=== PATIENT | female | born 1940 | race African-American/Black ===

== ENCOUNTER 2021-07-28 14:14 | Outpatient (CLI) | payer MEDICARE | END 2021-07-28 14:15 | disposition home or self-care (01) | LOC: ULT 14:14 | PROVIDERS: ATTEND Internal Medicine Nephrology | DX: Z01.818 Encounter for other preprocedural examination (principal) | CPT/HCPCS: 93970 ==

== ENCOUNTER → 2021-08-13 | Day surgery (SDC) | payer MEDICARE ==
[2021-08-11 09:38] VITALS: BMI 24.0
[~2021-08-13] MED LIST: Acetaminophen 500 MG TAB ONE; Bupivacaine 0.25% 10 ML VIAL ONE; Glycopyrrolate 0.2 MG/ML 5 ML SYRINGE ONE; Heparin 10,000 UNITS/ 10 ML VIAL ONE; Heparin 5,000 UNITS/ML VIAL ONE; Lidocaine 1% PF 5 ML VIAL ONE; Lidocaine 1% w/Epinephrine 1:100K 20 ML VIAL ONE; Lidocaine 2% PF 5 ML VIAL ONE; Ondansetron PF 4 MG/2 ML Vial ONE; PROPOFOL 200 MG/20 ML VIAL ONE; Protamine Sulfate 50 MG/5 ML VIAL ONE; Rocuronium Bromide 10 MG/ML (10ML VIAL) ONE; ceFAZolin (BATCH) 2 GM/100 ML BAG ONE; fentaNYL Citrate/PF 100 MCG/2 ML SYRINGE ONE; hydrALAZINE 20 MG/ML VIAL ONE
[2021-08-13 07:10] LABS: #Eosinphils 0.2 thou/uL (0.0-0.7); #Lymphocytes 1.5 thou/uL (1.20-3.40); #Monocytes 0.5 thou/uL (0.11-0.59); #Neutrophils 2.1 thou/uL (1.40-6.50); %Basophils 0.7 % (0.0-1.0); %Eosinophils 4.2 % (0.0-10.0); %Lymphocytes 34.9 % (21.0-51.0); %Monocytes 11.5 % (0.0-10.0); %Neutrophils 48.8 % (42.0-75.0); Mean Corpuscular HGB CONC 33.2 g/dL (32.0-36.0); Mean Corpuscular Hemoglobin 31.8 pg (27.0-31.0); Mean Corpuscular Volume 95.9 fL (78.0-98.0); Mean Platelet Volume 7.9 fL (7.4-10.4); Platelet Count 167 thou/uL (130-400); RBC Distribution Width 12.6 % (11.5-14.5); Red Blood Cell (RBC) Count 3.13 mill/uL (4.20-5.40); White Blood Cell (WBC) Count 4.3 thou/uL (4.8-10.8)
[2021-08-13 07:28] LABS: Anion Gap 16 mmol/L (10-20); BUN (Urea Nitrogen) 55 mg/dL (9.8-20.1); Calc. Creatinine Clearance 7 mL/min (70-130); Calcium 10.6 mg/dL (7.8-10.44); Carbon Dioxide 17 mmol/L (23-31); Chloride 113 mmol/L (98-107); Glucose 100 mg/dL (83-110); Potassium 4.2 mmol/L (3.5-5.1); Sodium 142 mmol/L (136-145)
[2021-08-13 07:33] LABS: SARS-CoV-2 NAA Rapid Test Not Detected (NotDetected)
== END | disposition home or self-care (01) ==
LOC: SDC 05:39
PROVIDERS: ATTEND Specialist
PROC: 0WHG43Z Insertion of Infusion Device into Peritoneal Cavity, Percutaneous Endoscopic Approach (ICD-10-PCS; principal; 2021-08-13)
PROC: 031C0ZF Bypass Left Radial Artery to Lower Arm Vein, Open Approach (ICD-10-PCS; 2021-08-13)
DX: I13.11 Hypertensive heart and chronic kidney disease without heart failure, with stage 5 chronic kidney disease, or end stage renal disease (principal); N18.6 End stage renal disease; K66.0 Peritoneal adhesions (postprocedural) (postinfection); I21.3 ST elevation (STEMI) myocardial infarction of unspecified site; Z79.899 Other long term (current) drug therapy; Z88.8 Allergy status to other drugs, medicaments and biological substances; Z91.041 Radiographic dye allergy status; Z20.822 Contact with and (suspected) exposure to COVID-19
CPT/HCPCS: 36821; 49324; 80048; 85025; 93005; C1776; U0002; 36415; 93010; J0360; J0690; J1644; J2001; J2405; J2704; J2720; S0020

== ENCOUNTER 2022-06-14 14:08 | Inpatient (IN) | payer MEDICARE ==
[2022-06-14 16:30] LABS: #Eosinphils 0.1 thou/uL (0.0-0.7); #Lymphocytes 1.5 thou/uL (1.20-3.40); #Monocytes 0.9 thou/uL (0.11-0.59); #Neutrophils 5.1 thou/uL (1.40-6.50); %Basophils 0.2 % (0.0-1.0); %Eosinophils 1.4 % (0.0-10.0); %Lymphocytes 19.2 % (21.0-51.0); %Monocytes 12.4 % (0.0-10.0); %Neutrophils 66.9 % (42.0-75.0); Hemoglobin 8.4 g/dL (12.0-16.0); Mean Corpuscular HGB CONC 33.9 g/dL (32.0-36.0); Mean Platelet Volume 7.2 fL (7.4-10.4); Platelet Count 219 10x3/uL (130-400); RBC Distribution Width 14.8 % (11.5-14.5); Red Blood Cell (RBC) Count 2.39 mill/uL (4.20-5.40); White Blood Cell (WBC) Count 7.6 10x3/uL (4.8-10.8)
[2022-06-14 16:50] LABS: ALT (SGPT) 11 U/L (8-55); AST (SGOT) 17 U/L (5-34); Albumin 2.7 g/dL (3.4-4.8); Alkaline Phosphatase 79 U/L (40-110); Anion Gap 21 mmol/L (10-20); BUN (Urea Nitrogen) 54 mg/dL (9.8-20.1); Bilirubin, Total 0.5 mg/dL (0.2-1.2); Calc. Creatinine Clearance 0 mL/min (70-130); Calcium 8.7 mg/dL (7.8-10.44); Carbon Dioxide 22 mmol/L (23-31); Chloride 100 mmol/L (98-107); Estimated GFR 2; Globulin 3.4 g/dL (2.4-3.5); Glucose 97 mg/dL (83-110); Lipase 31 U/L (8-78); Potassium 4.9 mmol/L (3.5-5.1); Protein, Total 6.1 g/dL (5.8-8.1); Sodium 138 mmol/L (136-145)
[2022-06-14] MEDS ORDERED: Senokot S 8.6-50 MG TAB PO PRN (18:03)
[2022-06-14] MEDS ORDERED: Atorvastatin Calcium 10 MG TAB PO SCH (21:00)
[2022-06-14] MEDS ORDERED: traMADol HCl 50 MG TAB PO PRN (21:00)
[2022-06-14] MEDS ORDERED: hydrALAZINE 25 MG TAB ONE (21:53)
[2022-06-14] MEDS: hydrALAZINE 25 MG TAB PO SCH (22:04)
[2022-06-14] MEDS: Cinacalcet HCl 30 MG TAB PO SCH (22:57)
[2022-06-14] MEDS: Heparin 5,000 UNITS/ML VIAL SC SCH (23:00)
[2022-06-14] MEDS: Bupropion 150 MG SR TAB PO SCH (23:00)
[2022-06-15 06:41] LABS: #Eosinphils 0.1 thou/uL (0.0-0.7); #Lymphocytes 1.2 thou/uL (1.20-3.40); #Monocytes 0.7 thou/uL (0.11-0.59); #Neutrophils 4.6 thou/uL (1.40-6.50); %Basophils 0.2 % (0.0-1.0); %Eosinophils 1.1 % (0.0-10.0); %Lymphocytes 17.5 % (21.0-51.0); %Monocytes 10.6 % (0.0-10.0); %Neutrophils 70.6 % (42.0-75.0); Hemoglobin 8.1 g/dL (12.0-16.0); Mean Corpuscular HGB CONC 31.7 g/dL (32.0-36.0); Mean Corpuscular Hemoglobin 33.7 pg (27.0-31.0); Mean Platelet Volume 8.1 fL (7.4-10.4); Platelet Count 153 10x3/uL (130-400); RBC Distribution Width 14.3 % (11.5-14.5); Red Blood Cell (RBC) Count 2.42 mill/uL (4.20-5.40); White Blood Cell (WBC) Count 6.6 10x3/uL (4.8-10.8)
[2022-06-15 06:54] LABS: ALT (SGPT) 10 U/L (8-55); AST (SGOT) 30 U/L (5-34); Albumin 2.5 g/dL (3.4-4.8); Alkaline Phosphatase 70 U/L (40-110); Anion Gap 18 mmol/L (10-20); BUN (Urea Nitrogen) 57 mg/dL (9.8-20.1); Bilirubin, Total 0.6 mg/dL (0.2-1.2); Calc. Creatinine Clearance 3 mL/min (70-130); Calcium 8.2 mg/dL (7.8-10.44); Carbon Dioxide 22 mmol/L (23-31); Chloride 104 mmol/L (98-107); Estimated GFR 2; Globulin 3.1 g/dL (2.4-3.5); Glucose 73 mg/dL (83-110); Magnesium 1.8 mg/dL (1.6-2.6); Phosphorus 6.2 mg/dL (2.3-4.7); Protein, Total 5.6 g/dL (5.8-8.1); Sodium 138 mmol/L (136-145)
[2022-06-15] MEDS ORDERED: Ferrous Sulfate 325 MG TAB PO SCH (08:00)
[2022-06-15] MEDS ORDERED: Heparin 10,000 UNITS/ 10 ML VIAL ONE (08:52)
[2022-06-15] MEDS ORDERED: Megestrol Acetate 40 MG TAB PO SCH (09:00)
[2022-06-15] MEDS ORDERED: Famotidine 20 MG TAB PO SCH (09:00)
[2022-06-15] MEDS: hydrALAZINE 25 MG TAB PO SCH ×4 (09:13→20:34)
[2022-06-15] MEDS: Bupropion 150 MG SR TAB PO SCH ×2 (09:13→20:34)
[2022-06-15] MEDS: Amlodipine 10 MG TAB PO SCH (09:14)
[2022-06-15] MEDS: Calcitriol 0.25 MCG CAP PO SCH (09:14)
[2022-06-15] MEDS ORDERED: Epoetin (ESRD) 20,000 UNITS/ML SC SCH (09:15)
[2022-06-15] MEDS: Heparin 5,000 UNITS/ML VIAL SC SCH ×3 (09:15→20:34)
[2022-06-15] MEDS ORDERED: MD-Gastroview 120 ML BOT ONE (09:17)
[2022-06-15 11:22] LABS: HBSAg Index 0.24 S/CO (0-0.99); Hep B Core Total Ab Non-Reactive (NonReactive); Hep B Core Total Index 0.11 S/CO (0-0.79); Hep B Surf Ag Non-Reactive S/CO (NonReactive); Hep C IgG Ab Non-Reactive (NonReactive)
[2022-06-15 11:34] LABS: HBSAB Concentration 662.74 mIU/mL; Hep B Surf AB Reactive (NonReactive)
[2022-06-15] MEDS: EPOETIN ALFA-EPBX (ESRD) 10,000 UNIT/ML VIAL SC SCH (15:44)
[2022-06-15] MEDS: predniSONE 50 MG TAB PO SCH (18:45)
[2022-06-15] MEDS: Pantoprazole 40 MG VIAL IVP SCH (20:34)
[2022-06-15] MEDS: Folic Acid/Vit B Comp W-C PO SCH (20:34)
[2022-06-15] MEDS: Cinacalcet HCl 30 MG TAB PO SCH (20:35)
[2022-06-16] MEDS: predniSONE 50 MG TAB PO SCH ×2 (00:10→06:26)
[2022-06-16 03:17] LABS: SARS-CoV-2 NAA Rapid Test Not Detected (NotDetected)
[2022-06-16 06:48] LABS: #Lymphocytes 0.6 thou/uL (1.20-3.40); #Monocytes 0.1 thou/uL (0.11-0.59); #Neutrophils 4.3 thou/uL (1.40-6.50); %Lymphocytes 11.4 % (21.0-51.0); %Monocytes 2.2 % (0.0-10.0); %Neutrophils 86.3 % (42.0-75.0); Hemoglobin 7.2 g/dL (12.0-16.0); Mean Corpuscular HGB CONC 33.3 g/dL (32.0-36.0); Mean Corpuscular Hemoglobin 34.6 pg (27.0-31.0); Mean Platelet Volume 7.3 fL (7.4-10.4); Platelet Count 188 10x3/uL (130-400); Red Blood Cell (RBC) Count 2.09 mill/uL (4.20-5.40)
[2022-06-16] MEDS ORDERED: diphenhydrAMINE 50 MG CAP PO SCH (07:00)
[2022-06-16 07:13] LABS: Anion Gap 18 mmol/L (10-20); BUN (Urea Nitrogen) 27 mg/dL (9.8-20.1); Calc. Creatinine Clearance 5 mL/min (70-130); Calcium 7.9 mg/dL (7.8-10.44); Carbon Dioxide 24 mmol/L (23-31); Chloride 105 mmol/L (98-107); Estimated GFR 4; Glucose 117 mg/dL (83-110); Sodium 143 mmol/L (136-145)
[2022-06-16] MEDS ORDERED: Sterile Water 10 ML VIAL IVP SCH (08:00)
[2022-06-16] MEDS ORDERED: Activase 2 MG VIAL CATH SCH (08:00)
[2022-06-16] MEDS: Amlodipine 10 MG TAB PO SCH (10:04)
[2022-06-16] MEDS: hydrALAZINE 25 MG TAB PO SCH ×4 (10:04→20:02)
[2022-06-16] MEDS: Pantoprazole 40 MG VIAL IVP SCH ×2 (10:05→20:03)
[2022-06-16] MEDS: Heparin 5,000 UNITS/ML VIAL SC SCH ×3 (10:05→20:02)
[2022-06-16] MEDS: Calcitriol 0.25 MCG CAP PO SCH (10:05)
[2022-06-16] MEDS: Bupropion 150 MG SR TAB PO SCH ×2 (10:05→20:01)
[2022-06-16] MEDS ORDERED: Iopamidol 300 61% 100 ML VIAL FS ONE (13:17)
[2022-06-16] MEDS ORDERED: fentaNYL PF 100 MCG/2 ML SYRINGE ONE (15:23)
[2022-06-16] MEDS ORDERED: SUGAMMADEX SODIUM 200 MG/2 ML VIAL ONE (15:32)
[2022-06-16] MEDS ORDERED: Bupivacaine HCl 0.5%/Epinephrine 1:200,000/PF 30 ml Vial ONE (15:33)
[2022-06-16] MEDS ORDERED: Lidocaine 2% PF 5 ML VIAL ONE (15:33)
[2022-06-16] MEDS ORDERED: Heparin 10,000 UNITS/ 10 ML VIAL ONE ×2 (15:33→16:36)
[2022-06-16] MEDS ORDERED: Sodium Chloride 0.9% 100 ML ONE (15:44)
[2022-06-16] MEDS ORDERED: CEFAZOLIN 2 GM VIAL ONE (15:44)
[2022-06-16] MEDS ORDERED: PHENYLEPHRINE-NS 100 MCG/ML 10 ML SYRINGE ONE (15:54)
[2022-06-16] MEDS ORDERED: Rocuronium Bromide 10 MG/ML (10ML VIAL) ONE (15:54)
[2022-06-16] MEDS ORDERED: PROPOFOL 200 MG/20 ML VIAL ONE (15:54)
[2022-06-16] MEDS ORDERED: Ondansetron PF 4 MG/2 ML Vial ONE (15:54)
[2022-06-16] MEDS ORDERED: Dexamethasone 20 MG/5 ML VIAL ONE (15:54)
[2022-06-16] MEDS ORDERED: Promethazine HCl 25 MG/ML VIAL IM PRN (17:16)
[2022-06-16] MEDS ORDERED: Ondansetron HCl/PF 4 MG/2 ML Vial IVP PRN (17:16)
[2022-06-16] MEDS: Folic Acid/Vit B Comp W-C PO SCH (20:02)
[2022-06-16] MEDS: Cinacalcet HCl 30 MG TAB PO SCH (20:03)
[2022-06-17] MEDS ORDERED: Acetaminophen 500 MG TAB PO PRN (03:58)
[2022-06-17] MEDS ORDERED: Famotidine 20 MG TAB PO SCH (04:00)
[2022-06-17] MEDS: HYDROcodone/Acetaminophen 5/325 mg Tablet PO PRN ×2 (04:09→11:04)
[2022-06-17 06:03] LABS: #Lymphocytes 0.6 thou/uL (1.20-3.40); #Monocytes 0.9 thou/uL (0.11-0.59); #Neutrophils 8.9 thou/uL (1.40-6.50); %Eosinophils 0.1 % (0.0-10.0); %Monocytes 8.8 % (0.0-10.0); %Neutrophils 85.1 % (42.0-75.0); Hemoglobin 5.8 g/dL (12.0-16.0); Mean Corpuscular HGB CONC 32.6 g/dL (32.0-36.0); Mean Corpuscular Hemoglobin 33.8 pg (27.0-31.0); Mean Platelet Volume 7.4 fL (7.4-10.4); Platelet Count 193 10x3/uL (130-400); RBC Distribution Width 14.1 % (11.5-14.5); Red Blood Cell (RBC) Count 1.72 mill/uL (4.20-5.40); White Blood Cell (WBC) Count 10.5 10x3/uL (4.8-10.8)
[2022-06-17 06:24] LABS: Anion Gap 18 mmol/L (10-20); BUN (Urea Nitrogen) 42 mg/dL (9.8-20.1); Calc. Creatinine Clearance 4 mL/min (70-130); Calcium 7.4 mg/dL (7.8-10.44); Carbon Dioxide 24 mmol/L (23-31); Chloride 102 mmol/L (98-107); Estimated GFR 3; Glucose 108 mg/dL (83-110); Sodium 140 mmol/L (136-145)
[2022-06-17] MEDS: Amlodipine 5 MG TAB PO SCH ×2 (07:48→20:29)
[2022-06-17] MEDS: hydrALAZINE 25 MG TAB PO SCH ×3 (07:49→20:29)
[2022-06-17] MEDS: Bupropion 150 MG SR TAB PO SCH ×2 (08:06→20:38)
[2022-06-17] MEDS: Pantoprazole 40 MG VIAL IVP SCH ×2 (08:06→20:32)
[2022-06-17] MEDS: Calcitriol 0.25 MCG CAP PO SCH (08:06)
[2022-06-17] MEDS ORDERED: Heparin 10,000 UNITS/ 10 ML VIAL ONE (08:46)
[2022-06-17] MEDS: Folic Acid/Vit B Comp W-C PO SCH (20:29)
[2022-06-17] MEDS: Cinacalcet HCl 30 MG TAB PO SCH (20:30)
[2022-06-18] MEDS: HYDROcodone/Acetaminophen 5/325 mg Tablet PO PRN ×2 (05:50→20:24)
[2022-06-18 06:10] LABS: #Eosinphils 0.1 thou/uL (0.0-0.7); #Lymphocytes 1.3 thou/uL (1.20-3.40); #Monocytes 1.3 thou/uL (0.11-0.59); #Neutrophils 6.8 thou/uL (1.40-6.50); %Basophils 0.1 % (0.0-1.0); %Eosinophils 0.6 % (0.0-10.0); %Lymphocytes 13.5 % (21.0-51.0); %Neutrophils 71.8 % (42.0-75.0); Mean Corpuscular HGB CONC 33.9 g/dL (32.0-36.0); Mean Corpuscular Hemoglobin 33.6 pg (27.0-31.0); Mean Platelet Volume 7.3 fL (7.4-10.4); Platelet Count 178 10x3/uL (130-400); RBC Distribution Width 15.7 % (11.5-14.5); Red Blood Cell (RBC) Count 2.98 mill/uL (4.20-5.40); White Blood Cell (WBC) Count 9.4 10x3/uL (4.8-10.8)
[2022-06-18 06:27] LABS: ALT (SGPT) Less than 7 U/L (8-55); AST (SGOT) 16 U/L (5-34); Albumin 2.5 g/dL (3.4-4.8); Alkaline Phosphatase 59 U/L (40-110); Anion Gap 14 mmol/L (10-20); BUN (Urea Nitrogen) 23 mg/dL (9.8-20.1); Bilirubin, Total 0.5 mg/dL (0.2-1.2); Calc. Creatinine Clearance 7 mL/min (70-130); Calcium 8.2 mg/dL (7.8-10.44); Carbon Dioxide 27 mmol/L (23-31); Chloride 101 mmol/L (98-107); Estimated GFR 7; Glucose 71 mg/dL (83-110); Potassium 3.3 mmol/L (3.5-5.1); Protein, Total 5.5 g/dL (5.8-8.1); Sodium 139 mmol/L (136-145)
[2022-06-18] MEDS: hydrALAZINE 25 MG TAB PO SCH ×3 (08:20→20:18)
[2022-06-18] MEDS: Calcitriol 0.25 MCG CAP PO SCH (08:20)
[2022-06-18] MEDS: Pantoprazole 40 MG VIAL IVP SCH ×2 (08:21→20:17)
[2022-06-18] MEDS: Bupropion 150 MG SR TAB PO SCH ×2 (08:21→20:22)
[2022-06-18] MEDS: Amlodipine 5 MG TAB PO SCH ×2 (08:21→20:18)
[2022-06-18] MEDS: Folic Acid/Vit B Comp W-C PO SCH (20:18)
[2022-06-18] MEDS: Cinacalcet HCl 30 MG TAB PO SCH (20:18)
[2022-06-18] MEDS ORDERED: Morphine 2 MG/ML VIAL SLOW IVP SCH (23:45)
[2022-06-19 05:53] LABS: #Eosinphils 0.2 thou/uL (0.0-0.7); #Lymphocytes 1.3 thou/uL (1.20-3.40); #Monocytes 1.2 thou/uL (0.11-0.59); #Neutrophils 6.8 thou/uL (1.40-6.50); %Basophils 0.1 % (0.0-1.0); %Eosinophils 1.6 % (0.0-10.0); %Lymphocytes 14.1 % (21.0-51.0); %Monocytes 12.7 % (0.0-10.0); %Neutrophils 71.5 % (42.0-75.0); Hemoglobin 10.2 g/dL (12.0-16.0); Mean Corpuscular HGB CONC 33.8 g/dL (32.0-36.0); Mean Corpuscular Hemoglobin 33.7 pg (27.0-31.0); Mean Corpuscular Volume 99.7 fl (78.0-98.0); Mean Platelet Volume 7.4 fL (7.4-10.4); Platelet Count 173 10x3/uL (130-400); RBC Distribution Width 15.1 % (11.5-14.5); Red Blood Cell (RBC) Count 3.02 mill/uL (4.20-5.40); White Blood Cell (WBC) Count 9.5 10x3/uL (4.8-10.8)
[2022-06-19 06:09] LABS: Anion Gap 15 mmol/L (10-20); BUN (Urea Nitrogen) 34 mg/dL (9.8-20.1); Calc. Creatinine Clearance 5 mL/min (70-130); Calcium 7.8 mg/dL (7.8-10.44); Carbon Dioxide 24 mmol/L (23-31); Chloride 103 mmol/L (98-107); Estimated GFR 5; Glucose 68 mg/dL (83-110); Potassium 3.4 mmol/L (3.5-5.1); Sodium 139 mmol/L (136-145)
[2022-06-19] MEDS: Calcitriol 0.25 MCG CAP PO SCH (08:52)
[2022-06-19] MEDS: Amlodipine 5 MG TAB PO SCH ×2 (08:52→20:49)
[2022-06-19] MEDS: hydrALAZINE 25 MG TAB PO SCH ×3 (08:52→20:52)
[2022-06-19] MEDS: Bupropion 150 MG SR TAB PO SCH ×2 (08:53→20:53)
[2022-06-19] MEDS: Pantoprazole 40 MG VIAL IVP SCH ×2 (08:53→20:49)
[2022-06-19] MEDS ORDERED: Heparin 10,000 UNITS/ 10 ML VIAL ONE ×2 (13:30→17:30)
[2022-06-19] MEDS: Cinacalcet HCl 30 MG TAB PO SCH (20:49)
[2022-06-19] MEDS: Folic Acid/Vit B Comp W-C PO SCH (20:49)
[2022-06-19] MEDS: HYDROcodone/Acetaminophen 5/325 mg Tablet PO PRN (22:46)
[2022-06-20] MEDS ORDERED: Ondansetron ODT 4 MG TAB PO PRN (01:49)
[2022-06-20] MEDS: Ondansetron PF 4 MG/2 ML Vial IVP PRN ×2 (01:57→06:41)
[2022-06-20] MEDS ORDERED: Morphine 2 MG/ML VIAL SLOW IVP SCH (02:00)
[2022-06-20 06:27] LABS: Anion Gap 14 mmol/L (10-20); BUN (Urea Nitrogen) 33 mg/dL (9.8-20.1); Calc. Creatinine Clearance 6 mL/min (70-130); Calcium 7.5 mg/dL (7.8-10.44); Carbon Dioxide 24 mmol/L (23-31); Chloride 102 mmol/L (98-107); Estimated GFR 5; Glucose 91 mg/dL (83-110); Potassium 2.9 mmol/L (3.5-5.1); Sodium 137 mmol/L (136-145)
[2022-06-20] MEDS ORDERED: Heparin 10,000 UNITS/ 10 ML VIAL ONE (08:44)
[2022-06-20] MEDS: Amlodipine 5 MG TAB PO SCH ×2 (09:27→21:05)
[2022-06-20] MEDS: Calcitriol 0.25 MCG CAP PO SCH (09:27)
[2022-06-20] MEDS: Pantoprazole 40 MG VIAL IVP SCH ×2 (09:28→21:05)
[2022-06-20] MEDS: Bupropion 150 MG SR TAB PO SCH ×2 (09:28→21:06)
[2022-06-20] MEDS: hydrALAZINE 25 MG TAB PO SCH ×3 (09:31→21:39)
[2022-06-20] MEDS: Calcium Acetate 667 MG CAP PO SCH ×2 (12:53→17:42)
[2022-06-20] MEDS: Folic Acid/Vit B Comp W-C PO SCH (21:05)
[2022-06-20] MEDS: Cinacalcet HCl 30 MG TAB PO SCH (21:05)
[2022-06-21] MEDS: Pantoprazole 40 MG VIAL IVP SCH ×2 (07:59→20:02)
[2022-06-21] MEDS: Calcitriol 0.25 MCG CAP PO SCH (08:02)
[2022-06-21] MEDS: Bupropion 150 MG SR TAB PO SCH ×2 (08:02→21:31)
[2022-06-21] MEDS: Calcium Acetate 667 MG CAP PO SCH ×3 (08:02→16:06)
[2022-06-21] MEDS: Amlodipine 5 MG TAB PO SCH ×2 (08:03→21:31)
[2022-06-21] MEDS: hydrALAZINE 25 MG TAB PO SCH ×3 (08:03→21:31)
[2022-06-21] MEDS ORDERED: cloNIDine 0.3mg/24 Hour PATCH TD SCH (09:00)
[2022-06-21 10:52] LABS: #Eosinphils 0.2 thou/uL (0.0-0.7); #Lymphocytes 1.4 thou/uL (1.20-3.40); #Monocytes 1.6 thou/uL (0.11-0.59); #Neutrophils 8.7 thou/uL (1.40-6.50); %Basophils 0.2 % (0.0-1.0); %Eosinophils 1.5 % (0.0-10.0); %Lymphocytes 11.9 % (21.0-51.0); %Monocytes 13.4 % (0.0-10.0); %Neutrophils 72.9 % (42.0-75.0); Hemoglobin 12.3 g/dL (12.0-16.0); Mean Corpuscular HGB CONC 32.1 g/dL (32.0-36.0); Mean Corpuscular Hemoglobin 32.6 pg (27.0-31.0); Mean Platelet Volume 7.4 fL (7.4-10.4); Platelet Count 305 10x3/uL (130-400); Red Blood Cell (RBC) Count 3.78 mill/uL (4.20-5.40)
[2022-06-21 11:43] LABS: Anion Gap 20 mmol/L (10-20); BUN (Urea Nitrogen) 37 mg/dL (9.8-20.1); Calc. Creatinine Clearance 5 mL/min (70-130); Calcium 8.7 mg/dL (7.8-10.44); Carbon Dioxide 22 mmol/L (23-31); Chloride 99 mmol/L (98-107); Estimated GFR 5; Glucose 102 mg/dL (83-110); Potassium 3.2 mmol/L (3.5-5.1); Sodium 138 mmol/L (136-145)
[2022-06-21] MEDS ORDERED: fentaNYL PF 100 MCG/2 ML SYRINGE ONE ×2 (14:13→16:03)
[2022-06-21] MEDS ORDERED: SUGAMMADEX SODIUM 200 MG/2 ML VIAL ONE (14:14)
[2022-06-21] MEDS ORDERED: Piperacillin/Tazobactam 3.375 GM VIAL ONE (14:23)
[2022-06-21] MEDS ORDERED: Sodium Chloride 0.9% 100 ML ONE (14:23)
[2022-06-21] MEDS ORDERED: ePHEDrine 50 MG/ML VIAL ONE (14:43)
[2022-06-21] MEDS ORDERED: Dexamethasone 20 MG/5 ML VIAL ONE (14:43)
[2022-06-21] MEDS ORDERED: PHENYLEPHRINE-NS 100 MCG/ML 10 ML SYRINGE ONE (14:43)
[2022-06-21] MEDS ORDERED: Ondansetron PF 4 MG/2 ML Vial ONE (14:43)
[2022-06-21] MEDS ORDERED: Lidocaine 1% PF 5 ML VIAL ONE (14:43)
[2022-06-21] MEDS ORDERED: PROPOFOL 200 MG/20 ML VIAL ONE (14:43)
[2022-06-21] MEDS ORDERED: Rocuronium Bromide 10 MG/ML (10ML VIAL) ONE (14:43)
[2022-06-21] MEDS ORDERED: Heparin 10,000 UNITS/ 10 ML VIAL ONE (15:14)
[2022-06-21] MEDS ORDERED: Morphine 4 MG/ML VIAL SLOW IVP PRN (16:05)
[2022-06-21] MEDS ORDERED: Naloxone HCl 0.4 mg/ml Vial IV PRN ×2 (16:06→16:08)
[2022-06-21] MEDS ORDERED: Zolpidem Tartrate 5 MG TAB PO PRN ×2 (16:06→16:08)
[2022-06-21] MEDS ORDERED: Ondansetron HCl/PF 4 MG/2 ML Vial IVP PRN (16:06)
[2022-06-21] MEDS ORDERED: diphenhydrAMINE 50 MG/ML VIAL IM PRN ×2 (16:06→16:08)
[2022-06-21] MEDS ORDERED: Ondansetron PF 4 MG/2 ML Vial IVP PRN ×2 (16:06→16:08)
[2022-06-21] MEDS ORDERED: diphenhydrAMINE 25 MG CAP PO PRN ×2 (16:06→16:08)
[2022-06-21] MEDS ORDERED: Promethazine HCl 25 MG/ML VIAL IM PRN ×3 (16:06→16:08)
[2022-06-21] MEDS ORDERED: diphenhydrAMINE 50 MG/ML VIAL IVP PRN ×2 (16:06→16:08)
[2022-06-21] MEDS ORDERED: FENTANYL 500 MCG/10 ML VIAL 2,000 MCG in Sodium Chloride 0.9% 60 ML IV PRN (16:08)
[2022-06-21] MEDS ORDERED: Communication Order-Pharmacy FS SCH ×2 (16:15)
[2022-06-21] MEDS ORDERED: HYDROmorphone 0.5 MG/0.5 ML SYRINGE ONE ×2 (16:17→16:30)
[2022-06-21] MEDS: Lactated Ringer's 1,000 ML IV SCH (17:32)
[2022-06-21] MEDS: Heparin 5,000 UNITS/ML VIAL SC SCH (20:06)
[2022-06-21] MEDS: Folic Acid/Vit B Comp W-C PO SCH (21:31)
[2022-06-21] MEDS: Cinacalcet HCl 30 MG TAB PO SCH (21:31)
[2022-06-22] MEDS: Lactated Ringer's 1,000 ML IV SCH ×2 (05:13→18:55)
[2022-06-22] MEDS: Heparin 5,000 UNITS/ML VIAL SC SCH ×3 (08:17→21:15)
[2022-06-22] MEDS: Calcium Acetate 667 MG CAP PO SCH ×3 (08:17→17:19)
[2022-06-22] MEDS: Pantoprazole 40 MG VIAL IVP SCH ×2 (08:17→21:09)
[2022-06-22] MEDS: Amlodipine 5 MG TAB PO SCH ×2 (08:17→21:09)
[2022-06-22] MEDS: Bupropion 150 MG SR TAB PO SCH ×2 (08:17→21:09)
[2022-06-22] MEDS: Calcitriol 0.25 MCG CAP PO SCH (08:17)
[2022-06-22] MEDS: hydrALAZINE 25 MG TAB PO SCH ×3 (08:18→21:10)
[2022-06-22] MEDS ORDERED: Heparin 10,000 UNITS/ 10 ML VIAL ONE (09:03)
[2022-06-22 10:10] LABS: ALT (SGPT) Less than 7 U/L (8-55); AST (SGOT) 38 U/L (5-34); Albumin 2.2 g/dL (3.4-4.8); Alkaline Phosphatase 77 U/L (40-110); Anion Gap 20 mmol/L (10-20); BUN (Urea Nitrogen) 44 mg/dL (9.8-20.1); Bilirubin, Total 0.5 mg/dL (0.2-1.2); Calc. Creatinine Clearance 4 mL/min (70-130); Calcium 7.6 mg/dL (7.8-10.44); Carbon Dioxide 14 mmol/L (23-31); Chloride 107 mmol/L (98-107); Estimated GFR 4; Globulin 3.3 g/dL (2.4-3.5); Glucose 81 mg/dL (83-110); Potassium 4.3 mmol/L (3.5-5.1); Protein, Total 5.5 g/dL (5.8-8.1); Sodium 137 mmol/L (136-145)
[2022-06-22 10:59] LABS: Hemoglobin 10.8 g/dL (12.0-16.0); Mean Corpuscular HGB CONC 32.7 g/dL (32.0-36.0); Mean Platelet Volume 7.6 fL (7.4-10.4); Platelet Count 274 10x3/uL (130-400); RBC Distribution Width 14.7 % (11.5-14.5); Red Blood Cell (RBC) Count 3.26 mill/uL (4.20-5.40); White Blood Cell (WBC) Count 11.8 10x3/uL (4.8-10.8)
[2022-06-22 11:16] LABS: Band 37 % (5-11); Lymphocytes 12 % (21-51); MDiff Complete? YES; Monocytes 11 % (0-10); Neutrophil 40 % (42-75); Platelet Morphology Comment Appears Adequate; Polychromasia SLIGHT = 2-3 cells (100X) (0-2/hpf)
[2022-06-22] MEDS: EPOETIN ALFA-EPBX (ESRD) 10,000 UNIT/ML VIAL SC SCH (12:07)
[2022-06-22 13:43] VITALS: BMI 22.5
[2022-06-22] MEDS: Folic Acid/Vit B Comp W-C PO SCH (21:10)
[2022-06-22] MEDS: Cinacalcet HCl 30 MG TAB PO SCH (21:10)
[2022-06-23] MEDS ORDERED: Dextrose 50% Abboject 50 ML SYRINGE SLOW IVP PRN (06:16)
[2022-06-23] MEDS ORDERED: Dextrose 5%-Lactated Ringers 1,000 ML IV SCH (07:45)
[2022-06-23 08:05] LABS: Hemoglobin 9.3 g/dL (12.0-16.0); Mean Corpuscular HGB CONC 31.7 g/dL (32.0-36.0); Mean Corpuscular Hemoglobin 32.8 pg (27.0-31.0); Mean Platelet Volume 8.8 fL (7.4-10.4); Platelet Count 176 10x3/uL (130-400); RBC Distribution Width 14.9 % (11.5-14.5); Red Blood Cell (RBC) Count 2.83 mill/uL (4.20-5.40); White Blood Cell (WBC) Count 11.6 10x3/uL (4.8-10.8)
[2022-06-23] MEDS: Calcitriol 0.25 MCG CAP PO SCH (08:48)
[2022-06-23] MEDS: Bupropion 150 MG SR TAB PO SCH ×2 (08:48→21:04)
[2022-06-23] MEDS: Calcium Acetate 667 MG CAP PO SCH ×3 (08:48→17:00)
[2022-06-23] MEDS: hydrALAZINE 25 MG TAB PO SCH ×3 (08:48→21:05)
[2022-06-23] MEDS: Amlodipine 5 MG TAB PO SCH ×2 (08:48→21:04)
[2022-06-23 08:56] LABS: Band 37 % (5-11); Hypochromia SLIGHT = 6-15 cells (100X) (0-5/hpf); Lymphocytes 11 % (21-51); MDiff Complete? YES; Monocytes 11 % (0-10); Neutrophil 40 % (42-75); Platelet Morphology Comment Appears Adequate; Vacuoles SLIGHT
[2022-06-23] MEDS ORDERED: Vancomycin 1 GM in Premix Bag 1 BAG IVPB SCH (09:30)
[2022-06-23] MEDS ORDERED: Vancomycin Hemodialysis Sliding Scale FS SCH (09:45)
[2022-06-23 09:55] LABS: ALT (SGPT) 284 U/L (8-55); AST (SGOT) 1054 U/L (5-34); Albumin 1.6 g/dL (3.4-4.8); Alkaline Phosphatase 53 U/L (40-110); Anion Gap 30 mmol/L (10-20); BUN (Urea Nitrogen) 33 mg/dL (9.8-20.1); Bilirubin, Total 0.7 mg/dL (0.2-1.2); CK (CPK) 177 U/L (29-168); Calc. Creatinine Clearance 7 mL/min (70-130); Calcium 6.8 mg/dL (7.8-10.44); Carbon Dioxide 10 mmol/L (23-31); Chloride 101 mmol/L (98-107); Estimated GFR 7; Globulin 1.7 g/dL (2.4-3.5); Glucose 178 mg/dL (83-110); Magnesium 1.7 mg/dL (1.6-2.6); Phosphorus 7.5 mg/dL (2.3-4.7); Potassium 4.2 mmol/L (3.5-5.1); Protein, Total 3.3 g/dL (5.8-8.1); Sodium 137 mmol/L (136-145)
[2022-06-23] MEDS: Heparin 5,000 UNITS/ML VIAL SC SCH ×3 (09:57→21:05)
[2022-06-23] MEDS: Pantoprazole 40 MG VIAL IVP SCH ×2 (09:57→21:23)
[2022-06-23] MEDS ORDERED: Vancomycin 1.5 GRAM/300 ML BAG 1.5 GM in Premix Bag 1 BAG IVPB SCH (10:00)
[2022-06-23] MEDS: Dextrose 5%-Lactated Ringers 1,000 ML IV SCH (10:15)
[2022-06-23] MEDS ORDERED: NOREPINEPHRINE 8 MG/250 ML-D5W 250 ML ONE (10:23)
[2022-06-23 11:00] LABS: Base Excess (BEa) -12.1 mEq/L (-2.0 to +3.0); CO2 Tension 25.2 mmHg (35.0-45.0); Calcium, Ionized (arterial) 0.87 mmol/L (1.12-1.30); Carboxyhemoglobin (COHb) 1.6 gm% (0.0-3.0); O2 Tension (PaO2), arterial 81.8 mmHg (> 60.0); pH, Arterial 7.33 (7.35-7.45)
[2022-06-23] MEDS ORDERED: VANCOMYCIN 1.25 GM/250 ML BAG 1.25 GM in Premix Bag 1 BAG IVPB SCH (11:00)
[2022-06-23 11:01] LABS: Actual Bicarbonate (HCO3a) 12.9 mEq/L (22-28)
[2022-06-23 11:02] LABS: Hemoglobin (Hb) 4.8 g/dL (12.0-16.0); Puncture Site Arterial Line
[2022-06-23] MEDS ORDERED: Ventilator Sedation Protocol 1 EACH FS SCH (11:15)
[2022-06-23] MEDS ORDERED: Propofol 1,000 MG/100 ML VIAL IV PRN (11:30)
[2022-06-23] MEDS ORDERED: Fentanyl BOLUS 250 ML IVPB PRN (11:30)
[2022-06-23] MEDS ORDERED: Propofol BOLUS 1,000 MG/100 ML VIAL IV PRN (11:30)
[2022-06-23] MEDS ORDERED: Morphine 2 MG/ML VIAL SLOW IVP PRN (11:30)
[2022-06-23] MEDS ORDERED: Fentanyl CADD 100 ML IV SCH (11:30)
[2022-06-23 11:34] LABS: Hemoglobin 5.2 g/dL (12.0-16.0)
[2022-06-23 12:02] LABS: Troponin I 0.051 ng/mL (< 0.028)
[2022-06-23] MEDS ORDERED: Fentanyl CADD 100 ML ONE (12:07)
[2022-06-23 12:08] LABS: INR-International Normal Ratio 3.7; PTT 53.4 sec (22.9-36.1); Prothrombin Time 38.1 sec (12.0-14.7)
[2022-06-23] MEDS ORDERED: Calcium Chloride 1 GM/10 ML Abboject SYRINGE ONE (12:10)
[2022-06-23] MEDS: Albumin 25% 25 GM/100 ML BOT IVPB SCH ×3 (12:26→23:06)
[2022-06-23 13:02] LABS: Hemoglobin 8.5 g/dL (12.0-16.0); Mean Corpuscular HGB CONC 33.1 g/dL (32.0-36.0); Mean Corpuscular Hemoglobin 31.4 pg (27.0-31.0); Mean Corpuscular Volume 94.8 fl (78.0-98.0); Mean Platelet Volume 8.6 fL (7.4-10.4); Platelet Count 121 10x3/uL (130-400); RBC Distribution Width 15.1 % (11.5-14.5); Red Blood Cell (RBC) Count 2.72 mill/uL (4.20-5.40); White Blood Cell (WBC) Count 6.2 10x3/uL (4.8-10.8)
[2022-06-23] MEDS ORDERED: Sodium Chloride 0.9% 1,000 ML IV SCH (13:15)
[2022-06-23 13:31] LABS: Band 29 % (5-11); Burr Cells SLIGHT = 2-5 cells (100X) (0-1/hpf); Dohle Bodies SLIGHT; Lymphocytes 13 % (21-51); MDiff Complete? YES; Monocytes 5 % (0-10); Neutrophil 48 % (42-75); Nucleated RBC 10 % (0); Platelet Morphology Comment Appears Decreased; Polychromasia SLIGHT = 2-3 cells (100X) (0-2/hpf); Reactive Lymphocytes 5 % (0-10); Toxic Granulation SLIGHT; Vacuoles SLIGHT
[2022-06-23 13:32] LABS: Fibrinogen 378 mg/dL (253-463)
[2022-06-23 13:36] LABS: INR-International Normal Ratio 1.9; PTT 37.8 sec (22.9-36.1); Prothrombin Time 22.9 sec (12.0-14.7)
[2022-06-23 13:41] LABS: D-Dimer Test 5.01 *mcg/mL (0.27-0.43); Lactic Acid 13.5 mmol/L (0.5-2.2)
[2022-06-23 13:50] LABS: Platelet Count 121 10x3/uL (130-400)
[2022-06-23] MEDS ORDERED: Piperacillin/Tazobactam 4.5 GM in Sodium Chloride 0.9% 100 ML IVPB SCH (14:00)
[2022-06-23] MEDS ORDERED: Piperacillin/Tazobactam 3.375 GM in Sodium Chloride 0.9% 100 ML IVPB SCH (14:00)
[2022-06-23] MEDS ORDERED: PHENYLEPHRINE-NS 100 MCG/ML 10 ML SYRINGE ONE (14:44)
[2022-06-23] MEDS ORDERED: ePHEDrine 50 MG/ML VIAL ONE (14:44)
[2022-06-23] MEDS ORDERED: fentaNYL PF 100 MCG/2 ML SYRINGE ONE (15:09)
[2022-06-23 15:23] LABS: Base Excess (BEa) -10.2 mEq/L (-2.0 to +3.0); CO2 Tension 27.7 mmHg (35.0-45.0); Calcium, Ionized (arterial) 1.07 mmol/L (1.12-1.30); Hemoglobin (Hb) 9.7 g/dL (12.0-16.0); Potassium - ABG Lab 3.51 mmol/L (3.70-5.30); pH, Arterial 7.34 (7.35-7.45)
[2022-06-23] MEDS ORDERED: Sodium Bicarb 50 MEQ/50 ML VIAL ONE ×2 (15:25→17:22)
[2022-06-23 15:27] LABS: Puncture Site A-Line
[2022-06-23] MEDS ORDERED: Ketamine 50 MG/ML (10ML VIAL) ONE (16:13)
[2022-06-23] MEDS ORDERED: Dextrose 50% Abboject 50 ML SYRINGE ONE (16:28)
[2022-06-23] MEDS ORDERED: Albumin 5% 500 ML ONE (16:30)
[2022-06-23 19:59] LABS: Actual Bicarbonate (HCO3a) 18.9 mEq/L (22-28); Base Excess (BEa) -4.3 mEq/L (-2.0 to +3.0); CO2 Tension 29.1 mmHg (35.0-45.0); Calcium, Ionized (arterial) 1.01 mmol/L (1.12-1.30); Carboxyhemoglobin (COHb) 0.2 gm% (0.0-3.0); Hemoglobin (Hb) 11.2 g/dL (12.0-16.0); O2 Tension (PaO2), arterial 99.8 mmHg (> 60.0); pH, Arterial 7.43 (7.35-7.45)
[2022-06-23 20:03] LABS: Potassium - ABG Lab 2.43 mmol/L (3.70-5.30); Puncture Site Arterial Line
[2022-06-23 20:04] LABS: ALV-art Gradient 576.825 mmHg (0-20)
[2022-06-23 20:15] LABS: Hemoglobin 10.6 g/dL (12.0-16.0); Mean Corpuscular HGB CONC 34.1 g/dL (32.0-36.0); Mean Corpuscular Hemoglobin 31.7 pg (27.0-31.0); Mean Corpuscular Volume 93.1 fl (78.0-98.0); Mean Platelet Volume 7.7 fL (7.4-10.4); Platelet Count 124 10x3/uL (130-400); RBC Distribution Width 15.5 % (11.5-14.5); Red Blood Cell (RBC) Count 3.33 mill/uL (4.20-5.40)
[2022-06-23 20:26] LABS: Anion Gap 22 mmol/L (10-20); BUN (Urea Nitrogen) 36 mg/dL (9.8-20.1); Calc. Creatinine Clearance 8 mL/min (70-130); Calcium 7.3 mg/dL (7.8-10.44); Carbon Dioxide 18 mmol/L (23-31); Chloride 106 mmol/L (98-107); Estimated GFR 8; Glucose 96 mg/dL (83-110); Sodium 143 mmol/L (136-145)
[2022-06-23 20:45] LABS: White Blood Cell (WBC) Count 1.4 10x3/uL (4.8-10.8)
[2022-06-23 20:46] LABS: Anisocytosis SLIGHT = 6-15 cells (100X) (0-5/hpf); Band 24 % (5-11); Lymphocytes 19 % (21-51); MDiff Complete? YES; Metamyelocyte 5 % (0-0); Monocytes 1 % (0-10); Myelocyte 2 % (0-0); Neutrophil 49 % (42-75); Nucleated RBC 8 % (0); Platelet Morphology Comment Appears Decreased; Polychromasia SLIGHT = 2-3 cells (100X) (0-2/hpf)
[2022-06-23 20:52] LABS: Potassium 2.6 mmol/L (3.5-5.1)
[2022-06-23] MEDS: Cinacalcet HCl 30 MG TAB PO SCH (21:04)
[2022-06-23] MEDS: Folic Acid/Vit B Comp W-C PO SCH (21:04)
[2022-06-23] MEDS ORDERED: Potassium Chloride 40 MEQ in Premix Bag 1 BAG IVPB SCH (21:45)
[2022-06-23] MEDS ORDERED: Lactated Ringer's 500 ML IV SCH (23:00)
[2022-06-23] MEDS ORDERED: Lactated Ringer's 500 ML IV PRN (23:30)
[2022-06-23 23:55] LABS: Hemoglobin 10.6 g/dL (12.0-16.0)
[2022-06-24] MEDS: Dextrose 5%-Lactated Ringers 1,000 ML IV SCH (00:55)
[2022-06-24] MEDS: Lorazepam 2 MG/ML VIAL SLOW IVP PRN ×2 (01:09→04:48)
[2022-06-24] MEDS: Piperacillin/Tazobactam 3.375 GM in Sodium Chloride 0.9% 100 ML IVPB SCH ×2 (01:24→14:21)
[2022-06-24] MEDS ORDERED: Ipratropium/Albuterol 3 ML NEB NEB PRN (03:03)
[2022-06-24 03:36] LABS: Hemoglobin 10.8 g/dL (12.0-16.0); Mean Corpuscular HGB CONC 33.8 g/dL (32.0-36.0); Mean Corpuscular Hemoglobin 31.4 pg (27.0-31.0); Mean Corpuscular Volume 92.8 fl (78.0-98.0); Mean Platelet Volume 8.2 fL (7.4-10.4); Platelet Count 118 10x3/uL (130-400); RBC Distribution Width 15.9 % (11.5-14.5); Red Blood Cell (RBC) Count 3.43 mill/uL (4.20-5.40)
[2022-06-24] MEDS: NOREPINEPHRINE 8 MG/250 ML-D5W 250 ML IVPB SCH ×2 (03:45→12:19)
[2022-06-24 04:03] LABS: Anisocytosis SLIGHT = 6-15 cells (100X) (0-5/hpf); Band 22 % (5-11); Crenated RBC SLIGHT = 1-5 cells (100X) (None Seen); Eosinophils 2 % (0-10); Lymphocytes 15 % (21-51); MDiff Complete? YES; Metamyelocyte 2 % (0-0); Monocytes 5 % (0-10); Neutrophil 54 % (42-75); Nucleated RBC 10 % (0); Platelet Morphology Comment Appears Decreased; Polychromasia SLIGHT = 2-3 cells (100X) (0-2/hpf); Schistocytes SLIGHT = 2-5 cells (100X) (0-1/hpf); Tear Drops SLIGHT = 2-5 cells (100X) (0-1/hpf)
[2022-06-24 04:16] LABS: Phosphorus 3.3 mg/dL (2.3-4.7)
[2022-06-24 04:23] LABS: ALT (SGPT) 290 U/L (8-55); AST (SGOT) 1145 U/L (5-34); Albumin 2.6 g/dL (3.4-4.8); Alkaline Phosphatase 56 U/L (40-110); Anion Gap 21 mmol/L (10-20); BUN (Urea Nitrogen) 39 mg/dL (9.8-20.1); Bilirubin, Total 1.6 mg/dL (0.2-1.2); Calc. Creatinine Clearance 8 mL/min (70-130); Calcium 7.4 mg/dL (7.8-10.44); Carbon Dioxide 16 mmol/L (23-31); Chloride 108 mmol/L (98-107); Estimated GFR 8; Globulin 1.2 g/dL (2.4-3.5); Glucose 71 mg/dL (83-110); Magnesium 1.4 mg/dL (1.6-2.6); Potassium 3.8 mmol/L (3.5-5.1); Protein, Total 3.8 g/dL (5.8-8.1); Sodium 141 mmol/L (136-145)
[2022-06-24] MEDS ORDERED: Magnesium 2 GM/50 ML(in water) 2 GM in Premix Bag 1 BAG IVPB SCH (05:30)
[2022-06-24] MEDS: Albumin 25% 25 GM/100 ML BOT IVPB SCH (05:44)
[2022-06-24] MEDS ORDERED: Sodium Bicarbonate 150 MEQ in Dextrose 5% in Water 1,000 ML IV SCH (05:45)
[2022-06-24 07:39] LABS: Actual Bicarbonate (HCO3a) 17.3 mEq/L (22-28); Base Excess (BEa) -6.3 mEq/L (-2.0 to +3.0); CO2 Tension 28.3 mmHg (35.0-45.0); Calcium, Ionized (arterial) 1.01 mmol/L (1.12-1.30); Carboxyhemoglobin (COHb) 0.4 gm% (0.0-3.0); Hemoglobin (Hb) 11.4 g/dL (12.0-16.0); O2 Tension (PaO2), arterial 77.8 mmHg (> 60.0); Potassium - ABG Lab 3.96 mmol/L (3.70-5.30)
[2022-06-24 07:56] LABS: Puncture Site Arterial Line
[2022-06-24 07:57] LABS: ALV-art Gradient 528.525 mmHg (0-20)
[2022-06-24] MEDS ORDERED: Heparin 10,000 UNITS/ 10 ML VIAL ONE (09:10)
[2022-06-24] MEDS: Amlodipine 5 MG TAB PO SCH ×2 (09:28→21:17)
[2022-06-24] MEDS: Calcium Acetate 667 MG CAP PO SCH ×3 (09:28→17:41)
[2022-06-24] MEDS: hydrALAZINE 25 MG TAB PO SCH ×3 (09:29→21:18)
[2022-06-24] MEDS: Calcitriol 0.25 MCG CAP PO SCH (09:29)
[2022-06-24] MEDS: Bupropion 150 MG SR TAB PO SCH ×2 (09:29→21:17)
[2022-06-24 09:34] LABS: O2 Tension (PaO2), arterial 44.2 mmHg (> 60.0)
[2022-06-24 09:35] LABS: Actual Bicarbonate (HCO3a) 14.4 mEq/L (22-28)
[2022-06-24] MEDS: Heparin 5,000 UNITS/ML VIAL SC SCH ×3 (10:13→21:27)
[2022-06-24] MEDS: Pantoprazole 40 MG VIAL IVP SCH ×2 (10:13→21:27)
[2022-06-24 10:50] LABS: Actual Bicarbonate (HCO3a) 18.1 mEq/L (22-28); Base Excess (BEa) -5.3 mEq/L (-2.0 to +3.0); CO2 Tension 28.5 mmHg (35.0-45.0); Calcium, Ionized (arterial) 1.01 mmol/L (1.12-1.30); Carboxyhemoglobin (COHb) 0.2 gm% (0.0-3.0); Hemoglobin (Hb) 10.7 g/dL (12.0-16.0); O2 Tension (PaO2), arterial 65.5 mmHg (> 60.0); Potassium - ABG Lab 4.27 mmol/L (3.70-5.30); pH, Arterial 7.42 (7.35-7.45)
[2022-06-24 10:51] LABS: ALV-art Gradient 540.575 mmHg (0-20); Puncture Site Arterial Line
[2022-06-24] MEDS ORDERED: Albumin 25% 25 GM/100 ML BOT IVPB SCH (12:00)
[2022-06-24 15:27] VITALS: BP 110/37
[2022-06-24] MEDS ORDERED: Dextrose 5% in Water 1,000 ML IV PRN (17:00)
[2022-06-24 17:34] LABS: Actual Bicarbonate (HCO3a) 16.7 mEq/L (22-28); Base Excess (BEa) -6.8 mEq/L (-2.0 to +3.0); CO2 Tension 27.1 mmHg (35.0-45.0); Carboxyhemoglobin (COHb) 0.3 gm% (0.0-3.0); Hemoglobin (Hb) 9.8 g/dL (12.0-16.0); O2 Tension (PaO2), arterial 75.7 mmHg (> 60.0); Potassium - ABG Lab 4.53 mmol/L (3.70-5.30); pH, Arterial 7.41 (7.35-7.45)
[2022-06-24 17:35] LABS: ALV-art Gradient 532.125 mmHg (0-20); Puncture Site Arterial Line
[2022-06-24] MEDS: Folic Acid/Vit B Comp W-C PO SCH (21:18)
[2022-06-24] MEDS: Cinacalcet HCl 30 MG TAB PO SCH (21:18)
[2022-06-24] MEDS: Dextrose 10% in Water 1,000 ML IV SCH (21:22)
[2022-06-24] MEDS ORDERED: Lactated Ringer's 1,000 ML IV SCH (21:30)
[2022-06-25] MEDS: Piperacillin/Tazobactam 3.375 GM in Sodium Chloride 0.9% 100 ML IVPB SCH (01:46)
[2022-06-25] MEDS: NOREPINEPHRINE 8 MG/250 ML-D5W 250 ML IVPB SCH (01:46)
[2022-06-25 02:13] LABS: Base Excess (BEa) -20.5 mEq/L (-2.0 to +3.0); CO2 Tension 25.9 mmHg (35.0-45.0); Calcium, Ionized (arterial) 1.03 mmol/L (1.12-1.30); Carboxyhemoglobin (COHb) 0.3 gm% (0.0-3.0); Hemoglobin (Hb) 8.8 g/dL (12.0-16.0); O2 Tension (PaO2), arterial 79.7 mmHg (> 60.0); Potassium - ABG Lab 4.92 mmol/L (3.70-5.30)
[2022-06-25 02:15] LABS: pH, Arterial 7.09 (7.35-7.45)
[2022-06-25 02:16] LABS: Actual Bicarbonate (HCO3a) 7.7 mEq/L (22-28)
[2022-06-25 02:17] LABS: Puncture Site Arterial Line
[2022-06-25 02:18] LABS: ALV-art Gradient 529.625 mmHg (0-20)
[2022-06-25] MEDS ORDERED: Sodium Bicarb 50 MEQ/50 ML VIAL ONE (02:29)
[2022-06-25] MEDS ORDERED: Sodium Bicarbonate 150 MEQ in Dextrose 5% in Water 1,000 ML IV SCH ×2 (03:00→05:00)
[2022-06-25] MEDS ORDERED: Sodium Bicarb 50 MEQ/50 ML VIAL IVP SCH (03:00)
[2022-06-25] MEDS: Dextrose 10% in Water 1,000 ML IV SCH (03:21)
[2022-06-25 04:43] LABS: ALT (SGPT) 242 U/L (8-55); AST (SGOT) 851 U/L (5-34); Albumin 2.1 g/dL (3.4-4.8); Alkaline Phosphatase 103 U/L (40-110); Anion Gap 34 mmol/L (10-20); BUN (Urea Nitrogen) 19 mg/dL (9.8-20.1); Bilirubin, Total 1.5 mg/dL (0.2-1.2); Calc. Creatinine Clearance 13 mL/min (70-130); Calcium 7.2 mg/dL (7.8-10.44); Chloride 96 mmol/L (98-107); Estimated GFR 14; Glucose 202 mg/dL (83-110); Magnesium 1.9 mg/dL (1.6-2.6); Potassium 4.9 mmol/L (3.5-5.1); Protein, Total 3.1 g/dL (5.8-8.1); Sodium 133 mmol/L (136-145)
[2022-06-25 04:47] LABS: Carbon Dioxide 8 mmol/L (23-31)
[2022-06-25 04:55] VITALS: TEMP 97.8
[2022-06-25 05:23] LABS: Band 45 % (5-11); Burr Cells MODERATE= 6-15 cells (100X) (0-1/hpf); Dohle Bodies SLIGHT; Hemoglobin 8.3 g/dL (12.0-16.0); Lymphocytes 7 % (21-51); MDiff Complete? YES; Mean Corpuscular Hemoglobin 32.2 pg (27.0-31.0); Mean Corpuscular Volume 97.6 fl (78.0-98.0); Mean Platelet Volume 9.3 fL (7.4-10.4); Metamyelocyte 12 % (0-0); Monocytes 7 % (0-10); Myelocyte 3 % (0-0); Neutrophil 26 % (42-75); Nucleated RBC 18 % (0); Platelet Count 55 10x3/uL (130-400); Platelet Morphology Comment Appears Decreased; RBC Distribution Width 16.9 % (11.5-14.5); Red Blood Cell (RBC) Count 2.58 mill/uL (4.20-5.40); Toxic Granulation SLIGHT; Vacuoles SLIGHT; White Blood Cell (WBC) Count 18.4 10x3/uL (4.8-10.8)
[2022-06-25] MEDS: Albumin 25% 25 GM/100 ML BOT IVPB SCH ×2 (06:05→14:20)
[2022-06-25 07:37] LABS: Lactic Acid 25.4 mmol/L (0.5-2.2)
[2022-06-25 07:51] LABS: Base Excess (BEa) -20.4 mEq/L (-2.0 to +3.0); Calcium, Ionized (arterial) 0.99 mmol/L (1.12-1.30); Carboxyhemoglobin (COHb) 0.3 gm% (0.0-3.0); Hemoglobin (Hb) 8.8 g/dL (12.0-16.0); O2 Tension (PaO2), arterial 75.6 mmHg (> 60.0); Potassium - ABG Lab 5.46 mmol/L (3.70-5.30)
[2022-06-25] MEDS ORDERED: EPINEPHrine 1 MG/10 ML Abboject SYRINGE ONE (07:56)
[2022-06-25] MEDS ORDERED: Sodium Bicarb 50 MEQ/50 ML Abboject 8.4% SYRINGE ONE (07:56)
[2022-06-25] MEDS ORDERED: Calcium Chloride 1 GM/10 ML Abboject SYRINGE ONE (07:56)
[2022-06-25 08:11] LABS: Actual Bicarbonate (HCO3a) 7.2 mEq/L (22-28); CO2 Tension 22.8 mmHg (35.0-45.0); pH, Arterial 7.12 (7.35-7.45)
[2022-06-25 08:12] LABS: Puncture Site Arterial Line
[2022-06-25] MEDS: Calcium Acetate 667 MG CAP PO SCH ×2 (14:18→14:20)
[2022-06-25] MEDS: Heparin 5,000 UNITS/ML VIAL SC SCH (14:19)
[2022-06-25] MEDS: Bupropion 150 MG SR TAB PO SCH (14:19)
[2022-06-25] MEDS: hydrALAZINE 25 MG TAB PO SCH (14:19)
[2022-06-25] MEDS: Calcitriol 0.25 MCG CAP PO SCH (14:19)
[2022-06-25] MEDS: Pantoprazole 40 MG VIAL IVP SCH (14:20)
== END 2022-06-25 12:55 | disposition expired | DRG 907 ==
LOC: ERS 14:08 → SUATTDRO 14:08 → ERHOLD 18:08 → T4-A 22:41 → CCU 06-23 10:22
PROVIDERS: ADMIT Internal Medicine; ATTEND Internal Medicine
PROC: 5A1D70Z Performance of Urinary Filtration, Intermittent, Less than 6 Hours Per Day (ICD-10-PCS; 2022-06-15)
PROC: 3E1M39Z Irrigation of Peritoneal Cavity using Dialysate, Percutaneous Approach (ICD-10-PCS; 2022-06-15)
PROC: 0WWG43Z Revision of Infusion Device in Peritoneal Cavity, Percutaneous Endoscopic Approach (ICD-10-PCS; 2022-06-16)
PROC: 0JH60XZ Insertion of Tunneled Vascular Access Device into Chest Subcutaneous Tissue and Fascia, Open Approach (ICD-10-PCS; 2022-06-16)
PROC: 02HV33Z Insertion of Infusion Device into Superior Vena Cava, Percutaneous Approach (ICD-10-PCS; 2022-06-16)
PROC: B5181ZA Fluoroscopy of Superior Vena Cava using Low Osmolar Contrast, Guidance (ICD-10-PCS; 2022-06-16)
PROC: B548ZZA Ultrasonography of Superior Vena Cava, Guidance (ICD-10-PCS; 2022-06-16)
PROC: B51W1ZZ Fluoroscopy of Dialysis Shunt/Fistula using Low Osmolar Contrast (ICD-10-PCS; 2022-06-16)
PROC: 30233N1 Transfusion of Nonautologous Red Blood Cells into Peripheral Vein, Percutaneous Approach (ICD-10-PCS; 2022-06-17)
PROC: 0DN80ZZ Release Small Intestine, Open Approach (ICD-10-PCS; principal; 2022-06-21)
PROC: 0DBU0ZZ Excision of Omentum, Open Approach (ICD-10-PCS; 2022-06-21)
PROC: 3E0M05Z Introduction of Adhesion Barrier into Peritoneal Cavity, Open Approach (ICD-10-PCS; 2022-06-21)
PROC: 0D9670Z Drainage of Stomach with Drainage Device, Via Natural or Artificial Opening (ICD-10-PCS; 2022-06-21)
PROC: 0DQL0ZZ Repair Transverse Colon, Open Approach (ICD-10-PCS; 2022-06-23)
PROC: 0D9W0ZZ Drainage of Peritoneum, Open Approach (ICD-10-PCS; 2022-06-23)
PROC: 5A1945Z Respiratory Ventilation, 24-96 Consecutive Hours (ICD-10-PCS; 2022-06-23)
PROC: 30233L1 Transfusion of Nonautologous Fresh Plasma into Peripheral Vein, Percutaneous Approach (ICD-10-PCS; 2022-06-23)
PROC: 6A550Z2 Pheresis of Platelets, Single (ICD-10-PCS; 2022-06-23)
PROC: 06HY33Z Insertion of Infusion Device into Lower Vein, Percutaneous Approach (ICD-10-PCS; 2022-06-23)
PROC: 3E043XZ Introduction of Vasopressor into Central Vein, Percutaneous Approach (ICD-10-PCS; 2022-06-23)
PROC: 0BH18EZ Insertion of Endotracheal Airway into Trachea, Via Natural or Artificial Opening Endoscopic (ICD-10-PCS; 2022-06-23)
PROC: 04HY32Z Insertion of Monitoring Device into Lower Artery, Percutaneous Approach (ICD-10-PCS; 2022-06-23)
PROC: 5A12012 Performance of Cardiac Output, Single, Manual (ICD-10-PCS; 2022-06-25)
DX: T85.611A Breakdown (mechanical) of intraperitoneal dialysis catheter, initial encounter (principal); J96.01 Acute respiratory failure with hypoxia; N18.6 End stage renal disease; K56.51 Intestinal adhesions [bands], with partial obstruction; E44.0 Moderate protein-calorie malnutrition; I12.0 Hypertensive chronic kidney disease with stage 5 chronic kidney disease or end stage renal disease; N25.81 Secondary hyperparathyroidism of renal origin; D62 Acute posthemorrhagic anemia; K91.840 Postprocedural hemorrhage of a digestive system organ or structure following a digestive system procedure; E87.20 Acidosis, unspecified; R57.8 Other shock; Y84.8 Other medical procedures as the cause of abnormal reaction of the patient, or of later complication, without mention of misadventure at the time of the procedure; Z20.822 Contact with and (suspected) exposure to COVID-19; K21.9 Gastro-esophageal reflux disease without esophagitis; K44.9 Diaphragmatic hernia without obstruction or gangrene; F41.9 Anxiety disorder, unspecified; E78.5 Hyperlipidemia, unspecified; D63.1 Anemia in chronic kidney disease; K59.00 Constipation, unspecified; K66.8 Other specified disorders of peritoneum; K43.2 Incisional hernia without obstruction or gangrene; E11.22 Type 2 diabetes mellitus with diabetic chronic kidney disease; K63.89 Other specified diseases of intestine; I46.8 Cardiac arrest due to other underlying condition; E11.649 Type 2 diabetes mellitus with hypoglycemia without coma; E87.5 Hyperkalemia; E83.51 Hypocalcemia; E83.39 Other disorders of phosphorus metabolism; Y83.8 Other surgical procedures as the cause of abnormal reaction of the patient, or of later complication, without mention of misadventure at the time of the procedure; Z99.2 Dependence on renal dialysis; Z78.1 Physical restraint status; Z68.23 Body mass index [BMI] 23.0-23.9, adult; Z88.8 Allergy status to other drugs, medicaments and biological substances; Z91.09 Other allergy status, other than to drugs and biological substances; Z79.899 Other long term (current) drug therapy; Z98.890 Other specified postprocedural states
CPT/HCPCS: 36415; 36416; 36430; 36901; 70450; 71045; 74018; 74019; 74022; 74176; 74250; 80048; 80053; 80202; 82010; 82533; 82805; 83605; 83690; 83735; 83880; 84100; 84484; 85025; 85049; 85300; 85362; 85379; 85384; 85610; 85730; 86704; 86850; 86900; 86901; 87040; 87811; 90935; 90945; 93005; 93010; 93306; 94002; 94003; C1713; C1752; C1776; C1889; C9113; G0257; J0171; J1100; J1170; J1642; J1644; J2001; J2060; J2272; J2310; J2405; J2543; J2704; J3010; J3370; J3371; J3475; J3480; J3490; J7070; J7120; J7512; J7999; P9016; P9035; P9045; P9047; P9048; Q5105; Q9963; Q9967; U0002; U0003; U0005